=== PATIENT | male | born 1965 | race Caucasian/White ===

== ENCOUNTER 2021-07-03 14:28 | Emergency (ER) | payer SELFPAY ==
[~2021-07-03] VITALS: Ht 12.7 cm; Wt 3.2 kg
[2021-07-03 14:35] VITALS: BP 158/105
--- NOTE | 2021-07-03 14:55 | NUR ---
Note [email or web address] in EDM - 07/03/21 at 1635 by MED1 C/O NAUSEA, DARK URINE, 2/10 DANA SHOULDER PAIN , MARIE , FATIQUE X 2 DAYS. SARAH CARMICHAEL. BLOOD SUGAR 134 AT THIS TIME. COVID TESTED NEGATIVE 2 WEEKS AGO. PMH: SARAH
--- NOTE | 2021-07-03 14:55 | NUR ---
BIB C/O NAUSEA, DARK URINE, 2/10 DANA SHOULDER PAIN , MARIE , FATIQUE X 2 DAYS. DENIES DYSURIA. BLOOD SUGAR 134 AT THIS TIME. COVID TESTED NEGATIVE 2 WEEKS AGO. PMH: DENIES
[2021-07-03 15:59] LABS: APPEARANCE,URINE CLEAR (CLEAR); BILIRUBIN,URINE 2+ (NEGATIVE); BLOOD, URINE 2+ (NEGATIVE); COLOR,URINE DARK YELLOW (YELLOW); LEUKOCYTE ESTERASE ,URINE NEGATIVE (NEGATIVE); NITRITE, URINE NEGATIVE (NEGATIVE); UGLUCOSE NEGATIVE (NEGATIVE)
[2021-07-03 15:59] LABS: BASOPHILS % (AUTO) 0.4 % (0.0-2.0); EOSINOPHILS % (AUTO) 0.2 % (0.0-4.0); HEMATOCRIT 45.3 % (36-52); HEMOGLOBIN 15.2 g/dL (12.0-18.0); LYMPHOCYTES # (AUTO) 0.5 K/uL (2.0-11.5); LYMPHOCYTES % (AUTO) 5.9 % (20.5-51.1); MEAN CORPUSCULAR HEMOGLOBIN 30 pg (27-31); MEAN CORPUSCULAR HGB CONC 34 g/dL (33-37); MEAN CORPUSCULAR VOLUME 89.4 fL (80-94); MONOCYTES # (AUTO) 0.3 K/uL (0.8-1.0); NEUTROPHILS # (AUTO) 7.8 K/uL (1.8-7.7); NEUTROPHILS % (AUTO) 90.5 % (42.2-75.2); PLATELET COUNT (AUTO) 181 K/uL (140-450); RED BLOOD CELL COUNT(AUTO) 5.07 MIL/uL (4.20-6.10); RED CELL DISTRIBUTION WIDTH 14.2 % (11.6-13.7); WHITE BLOOD COUNT (AUTO) 8.6 K/uL (4.8-10.8)
[2021-07-03 16:30] LABS: ALBUMIN 3.2 g/dL (3.4-5.0); ANION GAP 13.9 (8-16); CARBON DIOXIDE 23.5 mmol/L (21-32); POTASSIUM 3.4 mmol/L (3.5-5.1)
[2021-07-03] MEDS ORDERED: NACL 0.9% 1,000 ML IV ONE (16:55)
[2021-07-03 17:00] LABS: CALCIUM OXALATE CRYSTALS,UR None Seen /HPF (None Seen); COARSE GRANULAR CASTS,URINE None Seen /LPF (None Seen); FINE GRANULAR CASTS,URINE None Seen /LPF (None Seen); HYALINE CASTS, URINE None Seen /LPF (None Seen); OTHER CASTS, URINE None Seen /LPF (None Seen); OTHER CRYSTALS,URINE None Seen /HPF (None Seen); RED BLOOD CELL CASTS,URINE None Seen /LPF (None Seen); TRICHOMONAS,URINE None Seen /HPF (None Seen); TRIPLE PHOSPHATE CRYSTAL,UR None Seen /HPF (None Seen); URIC ACID CRYSTALS,URINE None Seen /HPF (None Seen); URINE AMORPHOUS URATE None Seen /HPF (None Seen); WAXY CASTS,URINE None Seen /LPF (None Seen); WBC,URINE 0-5 /HPF (0-5); YEAST,URINE None Seen /HPF (None Seen)
[2021-07-03] MEDS ORDERED: SULF-59 PO (17:44)
[2021-07-03 18:00] VITALS: BP 158/105
--- NOTE | 2021-07-03 18:00 | NUR ---
Patient discharged with v/s stable. Written and verbal after care instructions given and explained. Patient alert, oriented and verbalized understanding of instructions. Ambulatory with spouse to car. All questions addressed prior to discharge. ID band removed. Patient advised to follow up with PMD. Rx of bactrim (sent) given. Patient educated on indication of medication including possible reaction and side effects. Opportunity to ask questions provided and answered.
== END 2021-07-03 18:00 | disposition home or self-care (01) ==
LOC: MED 14:28
DX: N39.0 Urinary tract infection, site not specified (principal); E86.0 Dehydration; Z79.899 Other long term (current) drug therapy
CPT/HCPCS: 36415; 80053; 81001; 85025; 96360; 99283; J7030; 81002